=== PATIENT | male | born 1955 | race Caucasian/White ===

== ENCOUNTER 2016-07-01 20:57 | Inpatient (IN) | payer BC ==
[~2016-07-01] VITALS: Ht 182.9 cm; Wt 85.0 kg
[~2016-07-01 20:57] MED LIST: ALPR0.254; ASPI-535; ATOR80TA18; CARV25TA43 PO; CILOSTAZOL PO; CLOP75TA19; ENAL20TA77; ESCI10TA PO; HYDR50CA2 PO; LANS30CA47 PO; LORA-408; MELO-110; NCN500CCR; TAMS-14
[2016-07-01 21:05] VITALS: Ht 182.9 cm; Wt 85.0 kg
--- NOTE | 2016-07-01 21:17 | ERA ---
ER Documentation Chief Complaint Date/Time DATE: 07/01/16 TIME: 21:16 Chief Complaint chest burning HPI The patient is a 60-year-old male, presenting to the ER because of substernal chest burning intermittently for 1 day, worse today. He was treated with aspirin 160 mg p.o. and 3 nitroglycerin spray by the EMS with good response. He had similar symptoms previously. He denies any chest pain, dyspnea, pleuritic chest pain. His blood pressure has been elevated for the last 20 days. He saw his physician yesterday who started him on new medication losartan in addition to clonidine. He denies headache, dizziness, chest pain with exertion or vomiting or diaphoresis. He denies abdominal pain, vomiting, dysuria, diarrhea, constipation. He used to smoke until 6 years ago, drinks socially Past medical history: Hypertension, dyslipidemia, BPH, anxiety Past surgical history: Appendectomy ROS All systems reviewed and are negative except as per history of present illness. Medications Home Meds Reported Medications [Cillostazol] No Conflict Check, PO BID 10/30/10 Lansoprazole* (Prevacid*) 30 Mg Capsule., 30 MG PO AM 10/30/10 Hydroxyzine Pamoate* (Hydroxyzine Pamoate*) 50 Mg Capsule, 50 MG PO HS 10/30/10 Escitalopram Oxalate* (Lexapro*) 10 Mg Tablet, 10 MG PO AM 10/30/10 Carvedilol (Coreg) 25 Mg Tablet, 25 MG PO HS 10/30/10 Lorazepam (Ativan) 1 Mg Tablet 06/13/09 Niacin* (Niaspan*) 500 Mg Tablet.sa 06/13/09 Atorvastatin (Lipitor) 80 Mg Tablet 05/27/09 Meloxicam* (Mobic*) 15 Mg Tablet 05/27/09 Tamsulosin Hcl* (Flomax*) 0.4 Mg Cap.sr.24h 05/27/09 Enalapril (Enalapril) 20 Mg Tablet 05/27/09 Alprazolam* (Alprazolam*) 0.25 Mg Tablet 05/27/09 Clopidogrel Bisulfate (Plavix) 75 Mg Tablet 05/27/09 Aspirin Ec (Aspir 81) 81 Mg Tablet. 05/27/09 Allergies Allergies: Coded Allergies: No Known Allergies (Verified Allergy, Mild, 2/25/10) PMhx/Soc History of Surgery: Yes (appendectomy) Anesthesia Reaction: No Hx Neurological Disorder: No Hx Respiratory Disorders: No Hx Cardiac Disorders: Yes (htn,high cholesterol,) Hx Psychiatric Problems: No Hx Miscellaneous Medical Probl: No Hx Alcohol Use: Yes (occasional) Hx Substance Use: No Hx Tobacco Use: No Physical Exam Vitals Vital Signs Date Time Temp Pulse Resp B/P Pulse Ox O2 Delivery O2 Flow Rate FiO2 07/01/16 22:25 76 16 143/88 99 Nasal Cannula 2.0 07/01/16 21:37 Nasal Cannula 2 07/01/16 21:05 98.6 67 12 162/95 97 Physical Exam Const: No acute distress. Head: Atraumatic. Eyes: Normal Conjunctiva. ENT: Normal External Ears, Nose and Mouth. Neck: Full range of motion. No meningismus. Resp: Clear to auscultation bilaterally. Cardio: Regular rate and rhythm, no murmurs. Abd: Soft, non distended, normal bowel sounds, non tender. Skin: No petechiae or rashes. Back: No midline or flank tenderness. Ext: No cyanosis, or edema. Neur: Awake and alert. No focal deficit Psych: Normal Mood and Affect. Result Diagram: 07/01/16219907/01/162199 Results 24 hrs Laboratory Tests Test 07/01/16 22:00 Activated Partial Thromboplast Time 24.4Sec Anion Gap 16 Basophils # 0.010^3/ul Basophils % 0.3% Blood Urea Nitrogen 21mg/dl Calcium Level 8.9mg/dl Carbon Dioxide Level 26mmol/L Chloride Level 106mmol/L Creatinine 1.25mg/dl Eosinophils # 0.110^3/ul Eosinophils % 1.5% Glucose Level 95mg/dl Hematocrit 43.0% Hemoglobin 14.7g/dl INR International Normalized Ratio 0.91 Lymphocytes # 2.510^3/ul Lymphocytes % 42.1% Mean Corpuscular Hemoglobin 28.3pg Mean Corpuscular Hemoglobin Concent 34.2g/dl Mean Corpuscular Volume 82.9fl Mean Platelet Volume 11.5fl Monocytes # 0.310^3/ul Monocytes % 5.6% Neutrophils # 3.010^3/ul Neutrophils % 50.2% Nucleated Red Blood Cells # 0.010^3/ul Nucleated Red Blood Cells % 0.0/100WBC Platelet Count 69607^3/UL Potassium Level 4.0mmol/L Prothrombin Time 12.2Sec Prothrombin Time Ratio 1.0 Red Blood Count 5.1910^6/ul Red Cell Distribution Width 13.8% Sodium Level 144mmol/L Troponin I < 0.012ng/ml White Blood Count 6.010^3/ul Current Medications Medications (Trade) Dose Ordered Sig/Dayana Route PRN Reason Start Time Stop Time Status Last Admin Dose Admin Aspirin (Aspirin) 325 mg ONCE ONCE PO 07/01/16 22:30 07/01/16 22:31 DC Nitroglycerin (Nitroglycerin 2% Oint) 1 inch ONCE ONCE TD 07/01/16 22:30 07/01/16 22:31 DC 07/01/16 22:48 Aspirin (Aspirin) 81 mg STK-MED ONCE .ROUTE 07/01/16 22:52 07/01/16 22:53 DC Aspirin (Aspirin) 162 mg ONCE ONCE PO 07/01/16 23:00 07/01/16 23:05 DC 07/01/16 23:06 Aspirin (Halfprin) 81 mg QAM PO 07/02/16 09:00 UNV Atorvastatin Calcium (Lipitor) 40 mg QAM PO 07/02/16 09:00 UNV Clopidogrel Bisulfate (plaVIX) 75 mg QAM PO 07/02/16 09:00 UNV Enalapril Maleate (Vasotec) 20 mg QAM PO 07/02/16 09:00 UNV Escitalopram Oxalate (Lexapro) 10 mg AM PO 07/02/16 09:00 UNV Hydroxyzine Pamoate (Vistaril) 50 mg HS PO 07/02/16 21:00 UNV Lansoprazole (Prevacid) 30 mg AM PO 07/02/16 09:00 UNV Tamsulosin HCl (Flomax) 0.4 mg QHS PO 07/02/16 21:00 UNV Enoxaparin Sodium (Lovenox) 40 mg ONCE ONCE SC 07/01/16 23:30 07/01/16 23:31 DC Procedures/MDM EKG: Read by emergency physician at 9:02 pm Rate/Rhythm: Normal Sinus Rhythm 79 beats/min QRS, ST, T-waves: No ST elevation, no T inversion Impression: normal EKG [place] [address] Radiology Main Line: [phone] DIAGNOSTIC IMAGING REPORT Patient: VIKY BECK : 1955 Age: 60 Sex: M MR #: [id number] DOS: 07/01/162 Ordering MD: ABDIRASHID WING MD Location: E/R Room/Bed: PROCEDURE: XR Chest. CLINICAL INDICATION: Chest pain. TECHNIQUE: Single frontal view of the chest was obtained COMPARISON: 05/11/2013. FINDINGS: Decreased lung inflation over interval with cardiomegaly. Hypoinflated lungs accentuate pulmonary vascular markings. Mild bibasilar atelectasis, left greater than right. PA and lateral views of the chest with improved lung inflation would be more sensitive and specific. There is no pleural effusion or pneumothorax. IMPRESSION: Cardiomegaly and mild bibasilar atelectasis, left greater than right. RPTAT: [facility] Physician Keisha Date Time Electronically viewed and signed by Physician Keisha on 07/01/2016 22:23 RS/ CC: ABDIRASHID WING MD MEDICAL MAKING DECISION: The patient is a 60-year-old male with multiple cardiac risk factor, presenting with acute chest pain that is concerning for ACS. He was treated with aspirin 160 mg p.o. at the ER. The differential diagnoses considered include but are not limited to acute coronary syndrome, acute myocardial infarction, pericarditis, pulmonary embolism, aortic dissection , pneumonia, pleural effusion, pneumothorax, GERD, chest wall pain. Departure Diagnosis: Primary Impression: Chest pain Condition: Stable Comments I discussed the findings with the patient. I discussed the patient with his physician Dr. Richardson who was made aware of the lab, the treatment, the patient condition. The patient is admitted to telemetry at 11:10 PM ABDIRASHID WING MD Jul 01, 2016 21:17
[2016-07-01 21:44] LABS: ADD SCAN DIFF NO
[2016-07-01 21:46] LABS: BASOPHILS % 0.3 % (0.0-2.0); EOSINOPHILS # 0.1 10^3/ul (0.0-0.5); EOSINOPHILS % 1.5 % (0.0-7.0); HEMOGLOBIN 14.7 g/dl (14.0-18.0); LYMPHOCYTES # 2.5 10^3/ul (0.8-2.9); LYMPHOCYTES % 42.1 % (15.0-51.0); MEAN CORPUSCULAR HEMOGLOBIN 28.3 pg (29.0-33.0); MEAN CORPUSCULAR HGB CONC 34.2 g/dl (32.0-37.0); MEAN CORPUSCULAR VOLUME 82.9 fl (82.0-101.0); MEAN PLATELET VOLUME 11.5 fl (7.4-10.4); MONOCYTE # 0.3 10^3/ul (0.3-0.9); MONOCYTES % 5.6 % (0.0-11.0); NEUTROPHILS % 50.2 % (39.0-77.0); PLATELET COUNT 176 10^3/UL (140-415); RED BLOOD COUNT 5.19 10^6/ul (4.70-6.10); RED CELL DISTRIBUTION WIDTH 13.8 % (11.5-14.5)
[2016-07-01 21:56] LABS: INR 0.91; PROTIME 12.2 Sec (12.2-14.2)
[2016-07-01 21:57] LABS: PARTIAL THROMBOPLASTIN TIME 24.4 Sec (25.0-35.0)
--- NOTE | 2016-07-01 22:23 | RADRPT ---
PROCEDURE: XR Chest. CLINICAL INDICATION: Chest pain. TECHNIQUE: Single frontal view of the chest was obtained COMPARISON: 05/11/2013. FINDINGS: Decreased lung inflation over interval with cardiomegaly. Hypoinflated lungs accentuate pulmonary v ascular markings. Mild bibasilar atelectasis, left greater than right. PA and lateral views of the chest with improved lung inflation would be more sensitive and specific. There is no pleural effusion or pneumothorax. IMPRESSION: Cardiomegaly and mild bibasilar atelectasis, left greater than right. RPTAT: [facility] Physician Keisha Date Time Electronically viewed and signed by Physician Keisha on 07/01/2016 22:23 RS/
[2016-07-01 22:27] LABS: CHLORIDE 106 mmol/L (97-110); SODIUM 144 mmol/L (135-144)
[2016-07-01 22:29] LABS: CREATININE 1.25 mg/dl (0.61-1.24)
[2016-07-01 22:30] LABS: ANION GAP 16 (8-16); BLOOD UREA NITROGEN 21 mg/dl (7-20); CALCIUM 8.9 mg/dl (8.4-10.2); CARBON DIOXIDE 26 mmol/L (21-31); GLUCOSE 95 mg/dl (70-220)
[2016-07-01] MEDS ORDERED: ASPIRIN 325 MG TAB PO ONE (22:30)
[2016-07-01] MEDS ORDERED: NITROGLYCERIN 2% 1 GM OINT PKT TD ONE (22:30)
[2016-07-01 22:51] LABS: TROPONIN-I < 0.012 ng/ml (0.00-0.12)
[2016-07-01] MEDS ORDERED: ASPIRIN 81 MG TAB ONE (22:52)
[2016-07-01] MEDS ORDERED: ASPIRIN 81 MG TAB PO ONE (23:00)
[2016-07-01] MEDS ORDERED: ENOXAPARIN 40 MG/0.4 ML SYG SC ONE (23:30)
[2016-07-02] VITALS (15 sets, daily range): BP systolic 102–180; BP diastolic 57–94; PULSE 59–80; RESP 18–20
[2016-07-02] MEDS ORDERED: hydrALAzine 20 MG INJ IV PRN (01:30)
[2016-07-02] MEDS ORDERED: morphine 2 MG INJ IV PRN (01:30)
[2016-07-02 03:51] LABS: CREATINE KINASE 63 IU/L (23-200)
[2016-07-02 04:05] LABS: CK-MB 0.84 ng/ml (0.0-2.4); TROPONIN-I < 0.012 ng/ml (0.00-0.12)
[2016-07-02] MEDS: LANSOPRAZOLE 30 MG CAP PO SCH (05:08)
[2016-07-02] MEDS: ATORVASTATIN 80 MG TAB PO SCH (08:52)
[2016-07-02] MEDS: CLOPIDOGREL 75 MG TAB PO SCH (08:52)
[2016-07-02] MEDS: ESCITALOPRAM 10 MG TAB PO SCH (08:53)
[2016-07-02] MEDS: ASPIRIN (EC) 81 MG TAB PO SCH (08:54)
[2016-07-02] MEDS: ENALAPRIL 20 MG TAB PO SCH (08:55)
[2016-07-02 10:58] LABS: CREATINE KINASE 57 IU/L (23-200)
[2016-07-02 11:08] LABS: CK-MB 0.63 ng/ml (0.0-2.4)
[2016-07-02 11:11] LABS: TROPONIN-I < 0.012 ng/ml (0.00-0.12)
[2016-07-02] MEDS: ACETAMINOPHEN 325 MG TAB PO PRN ×2 (12:56→20:23)
[2016-07-02] MEDS ORDERED: ONDANSETRON 4 MG TAB PO PRN (13:30)
[2016-07-02 13:36] LABS: PHOSPHORUS 3.7 mg/dl (2.5-4.9)
[2016-07-02] MEDS: TAMSULOSIN (SR) 0.4 MG CAP PO SCH (20:23)
[2016-07-02] MEDS: DOCUSATE SODIUM 100 MG CAP PO SCH (20:23)
[2016-07-02] MEDS: hydrOXYzine PAMOATE 25 MG CAP PO SCH (21:41)
--- NOTE | 2016-07-02 22:53 | RADRPT ---
Echocardiogram Report Patient Name: VIKY BECK Gender: Male Date: 1955 Study Date: 02-Jul-2016 Ict Account Manager: Arvind Mao [facility] Location: 507 Ref. Physician: ALISON CODY Quality: Adequate Procedures: Transthoracic echocardiogram with complete 2D, M-Mode, and doppler examination. Indications: Chest Pain. 2D/M Mode Doppler Measurement Value Normal Ranges Measurement Value Normal Ranges LVIDd 2D 4.5 3.5 - 5.6 cm AV Peak Kael 1.1 m/sec LVIDs 2D 3.3 2.1 - 4.1 cm AV Peak PG 5.0 mmHg FS 2D 26.2 % LVOT Peak Kael 0.9 m/sec LVPWd 2D 1.0 0.6 - 1.1 cm LVOT Peak PG 3.0 mmHg IVSd 2D 0.9 0.6 - 1.1 cm MV E Peak Kael 0.6 m/sec IVS/LVPW 2D 0.9 MV A Peak Kael 0.8 m/sec AoR Diam 2D 3.1 2.0 - 3.7 cm MV E/A 0.8 LA/Ao 2D 1 0 - 1 MV Decel Time 261 msec EDV 2D 91.7 cm3 MV E/A 0.8 ESV 2D 36.9 cm3 TR Peak Kael 1.9 m/sec LA Dimen 2D 3.4 2.3 - 4.0 cm TR Peak PG 15.0 mmHg RVSP 18.0 mmHg Findings Left Ventricle: Lower limits of normal systolic function. Normal left ventricular cavity size. Normal left ventricular wall thickness. Ejection fraction is visually estimated at 50 %. Tissue Doppler/Mitral Doppler indices are consistent with impaired relaxation (Stage I diastolic dysfunction). These segments of the LV are hypokinetic inferior mid segment and inferior base segment. Right Ventricle: Normal right ventricular size. Normal right ventricular systolic function. Left Atrium: The left atrium is normal in size. Right Atrium: The right atrium is normal in size. Mitral Valve: Normal appearance of the mitral valve. Mild mitral annular calcification. Trace mitral regurgitation. Aortic Valve: Normal appearance of the aortic valve. No significant aortic stenosis or insufficiency. Tricuspid Valve: Normal appearance and function of the tricuspid valve with trace physiologic regurgitation. Normal right ventricular systolic pressure. Pulmonic Valve: Normal pulmonic valve appearance. Pericardium: Normal pericardium with no significant pericardial effusion. Aorta: Normal aortic root. IVC: Normal size and normal respiratory collapse consistent with normal right atrial pressure. Conclusions Lower limits of normal systolic function. Normal left ventricular cavity size. Normal left ventricular wall thickness. Ejection fraction is visually estimated at 50 %. Tissue Doppler/Mitral Doppler indices are consistent with impaired relaxation (Stage I diastolic dysfunction). These segments of the LV are hypokinetic inferior mid segment and inferior base segment. Normal appearance of the mitral valve. Mild mitral annular calcification. Trace mitral regurgitation. Normal appearance of the aortic valve. No significant aortic stenosis or insufficiency. Normal appearance and function of the tricuspid valve with trace physiologic regurgitation. Normal right ventricular systolic pressure. Electronically Signed By: Analy Minaya 02-Jul-2016 22:52:51 -0700 Patient Name: VIKY BECK Study Date: 02-Jul-2016 [id number]
--- NOTE | 2016-07-02 22:55 | CONS ---
Date/Time of Note Date/Time of Note DATE: 07/02/16 TIME: 22:49 Assessment/Plan Assessment/Plan Problems: (1) Chest pain Status: Acute Additional Assessment/Plan Pt with CP with multiple risk factors R/O ACS Trop 3 neg EKG non ischeic Echo with LVEF 50% Plan for [place] and if negative may d/c home f/u out pt with me. Consultation Date/Type/Reason Admit Date/Time Jul 01, 2016 at 23:10 Date of Consultation: Jul 02, 2016 Type of Consultation: Interventional Cardiology Reason for Consultation CP Hx of Present Illness Patient is 60 year old M with PMH of HTn, HLD who came in with mid sternal CP and SOB, no CP free, Her Echo with LVEF is 50% and Trop x 3 negative . Constitutional: no complaints Eyes: no complaints Past Medical History Medical History: angina Social History Smoking Status: Former smoker Exam/Review of Systems Vital Signs Vitals Vital Signs Date Time Temp Pulse Resp B/P Pulse Ox O2 Delivery O2 Flow Rate FiO2 07/02/16 20:08 60 07/02/16 19:47 98.0 18 136/83 97 07/02/16 01:03 Nasal Cannula 2.0 Exam Constitutional: alert, oriented Psych: no complaints Head: normocephalic Eyes: nl conjunctiva ENMT: nl external ears & nose Neck: supple Respiratory: clear to auscultation Neurological: GANG RIDER II-XII intact Results Result Diagram: 07/01/16219907/01/162199 Results 24 hrs Laboratory Tests Test 07/02/16 03:30 07/02/16 10:35 Creatine Kinase 63 57 Creatine Kinase Index 1.3 1.1 Creatinine Kinase MB (Mass) 0.84 0.63 Troponin I < 0.012 < 0.012 Cholesterol Level 210 H Cholesterol/HDL Ratio 5.0 HDL Cholesterol 42 LDL Cholesterol, Calculated 135 Phosphorus Level 3.7 Triglycerides Level 167 H Medications Medications Current Medications Aspirin (Halfprin) 81 mg QAM PO Last administered on 07/02/16 08:54; Admin Dose 81 MG; Start 07/02/16 at 09:00 Atorvastatin Calcium (Lipitor) 40 mg QAM PO Last administered on 07/02/16 08: 52; Admin Dose 40 MG; Start 07/02/16 at 09:00 Clopidogrel Bisulfate (plaVIX) 75 mg QAM PO Last administered on 07/02/16 08: 52; Admin Dose 75 MG; Start 07/02/16 at 09:00 Enalapril Maleate (Vasotec) 20 mg QAM PO Last administered on 07/02/16 08:55; Admin Dose 20 MG; Start 07/02/16 at 09:00 Escitalopram Oxalate (Lexapro) 10 mg AM PO Last administered on 07/02/16 08:53 ; Admin Dose 10 MG; Start 07/02/16 at 09:00 Hydroxyzine Pamoate (Vistaril) 50 mg HS PO Last administered on 07/02/16 21:41 ; Admin Dose 50 MG; Start 07/02/16 at 21:00 Lansoprazole (Prevacid) 30 mg DAILY@06 PO Last administered on 07/02/16 05:08 ; Admin Dose 30 MG; Start 07/02/16 at 06:00 Tamsulosin HCl (Flomax) 0.4 mg QHS PO Last administered on 07/02/16 20:23; Admin Dose 0.4 MG; Start 07/02/16 at 21:00 Carvedilol (Coreg) 25 mg BID PO Last administered on 07/02/16 20:23; Admin Dose 25 MG; Start 07/02/16 at 09:00 Hydralazine HCl (Apresoline) 10 mg Q4H PRN IV SBP>170 Last administered on 07/02 04:17; Admin Dose 10 MG; Start 07/02/16 at 01:30 Morphine Sulfate (morphine) 2 mg Q4H PRN IV pain; Start 07/02/16 at 01:30 Acetaminophen (Tylenol Tab) 650 mg Q4H PRN PO PAIN AND OR ELEVATED TEMP Last administered on 07/02/16 20:23; Admin Dose 650 MG; Start 07/02/16 at 01:30 Docusate Sodium (Colace) 100 mg BID PO Last administered on 07/02/16 20:23; Admin Dose 100 MG; Start 07/02/16 at 21:00 Ondansetron HCl (Zofran Tab) 4 mg Q6H PRN PO NAUSEA AND/OR VOMITING; Start at 13:30 JOSH BLACK MD Jul 02, 2016 22:54
[2016-07-03] VITALS (12 sets, daily range): BP systolic 106–153; BP diastolic 70–91; PULSE 48–76; RESP 18–20
[2016-07-03] MEDS: LANSOPRAZOLE 30 MG CAP PO SCH (05:35)
[2016-07-03 07:02] LABS: ADD SCAN DIFF NO
[2016-07-03 07:13] LABS: BASOPHILS % 0.3 % (0.0-2.0); EOSINOPHILS # 0.1 10^3/ul (0.0-0.5); EOSINOPHILS % 1.9 % (0.0-7.0); HEMOGLOBIN 15.6 g/dl (14.0-18.0); LYMPHOCYTES # 2.3 10^3/ul (0.8-2.9); LYMPHOCYTES % 38.8 % (15.0-51.0); MEAN CORPUSCULAR HEMOGLOBIN 27.9 pg (29.0-33.0); MEAN CORPUSCULAR HGB CONC 33.2 g/dl (32.0-37.0); MEAN CORPUSCULAR VOLUME 84.1 fl (82.0-101.0); MEAN PLATELET VOLUME 11.5 fl (7.4-10.4); MONOCYTE # 0.4 10^3/ul (0.3-0.9); MONOCYTES % 6.9 % (0.0-11.0); NEUTROPHILS % 51.6 % (39.0-77.0); PLATELET COUNT 197 10^3/UL (140-415); RED BLOOD COUNT 5.59 10^6/ul (4.70-6.10); RED CELL DISTRIBUTION WIDTH 14.3 % (11.5-14.5); WHITE BLOOD COUNT 5.9 10^3/ul (4.8-10.8)
[2016-07-03 07:15] LABS: POTASSIUM 4.3 mmol/L (3.5-5.1)
[2016-07-03 07:18] LABS: CALCIUM 8.8 mg/dl (8.4-10.2); CREATININE 1.01 mg/dl (0.61-1.24)
[2016-07-03 07:19] LABS: MAGNESIUM 2.2 mg/dl (1.7-2.5)
[2016-07-03] MEDS: ATORVASTATIN 80 MG TAB PO SCH (09:59)
[2016-07-03] MEDS: DOCUSATE SODIUM 100 MG CAP PO SCH ×2 (09:59→20:44)
[2016-07-03] MEDS: ASPIRIN (EC) 81 MG TAB PO SCH (10:00)
[2016-07-03] MEDS: ESCITALOPRAM 10 MG TAB PO SCH (10:00)
[2016-07-03] MEDS: CLOPIDOGREL 75 MG TAB PO SCH (10:00)
[2016-07-03] MEDS: ENALAPRIL 20 MG TAB PO SCH (10:01)
[2016-07-03] MEDS: ACETAMINOPHEN 325 MG TAB PO PRN (11:43)
[2016-07-03] MEDS ORDERED: REGADENOSON 0.4 MG/5 ML SYG ONE (13:39)
--- NOTE | 2016-07-03 14:40 | CARRPT ---
DATE OF PROCEDURE: 07/03/2016 INDICATION: Chest pain, assess for ischemia. BASELINE VITAL SIGNS AND ELECTROCARDIOGRAM: Pulse 58, blood pressure elevated at 175/95. Electroca rdiogram with normal sinus rhythm, rate of 63, normal axis, normal intervals with isolated T-wave fl attening in inferior leads. PROCEDURE: Patient with standard Lexiscan infusion protocol over 10 seconds followed by radiolabele d tracer. The patient's test was stopped due to completion of protocol. Maximal achieved blood pre ssure during the test 144/80. Maximal heart rate during the test 90. ELECTROCARDIOGRAM FINDINGS: The patient did not develop any new Lexiscan-induced ST or T-wave martines es from baseline abnormalities. No documented PVCs. SYMPTOMS: The patient had no complaints of chest pain or shortness of breath during stress testing. IMPRESSION: 1. No Lexiscan-induced ST or T-wave changes from baseline abnormalities or diagnostic cardiac ische emery. 2. No complaints of chest pain or shortness of breath during stress testing. 3. No documented premature ventricular contractions during stress testing. 4. Report of nuclear images to follow in separate dictation. Dictated By: NATY MELLO/MIKAYLA Conf#: [id number] DID#: [id number] CC: SARY BROOKE MD; JOSH BLACK MD;*[facility]*
--- NOTE | 2016-07-03 16:21 | RADRPT ---
PROCEDURE: Lexiscan myocardial perfusion study CLINICAL INDICATION: 60 -year-old patient complaining of chest pain. TECHNIQUE: Lexiscan 0.4 mg intravenously separate acquisition gated myocardial perfusion SPECT usi ng Tc 99m Myoview 30.6 mCi intravenously at stress and Tc-99m Myoview, 10.6 mCi intravenously at res t was performed using the rest/stress sequence. Poststress Myoview SPECT images were obtained in th e supine position. COMPARISON: Correlation with the previous study dated October 31, 2010 is not available at the time o f this interpretation.. FINDINGS: Perfusion images reveal no evidence of perfusion defects. Lexiscan post stress gated SPECT images demonstrate no wall motion abnormalities. IMPRESSION: 1. No evidence of perfusion defects. 2. No wall motion abnormalities. 3. The left ventricle ejection fraction at stress is 59%. RPTAT: HH .Tara Gamino MD, Date Time Electronically viewed and signed by .Tara Gamino MD, on 07/03/2016 16:20 .L/
--- NOTE | 2016-07-03 17:32 | HP ---
DATE OF ADMISSION: 07/01/2016 CHIEF COMPLAINT: Chest pain. HISTORY OF PRESENT ILLNESS: The patient is a 60-year-old gentleman with a history of hypertension, hyperlipidemia, anxiety, BPH, GERD, CHF, hyperlipidemia, and per patient, a left carotid artery 100% occlusion and cardiomegaly. The patient is a former smoker, and stated that he is compliant with m edication, managed by primary Dr. Barrera. The patient developed substernal chest burning for 1 d ay, that got significantly worse on Wednesday night. The patient was treated with aspirin and nitrog lycerin in the emergency room, with good response. Patient also complained that he has blood pressu re that sometimes the systolic goes up to 240. In the emergency room on admission the patient's blo od pressure was 162/95. The patient denied any nausea or vomiting. Denies fever, denies chills, de nies dysuria, denies bilateral lower extremity swelling, and the patient was admitted for further ev aluation and management. PAST MEDICAL HISTORY: Per HPI. PAST SURGICAL HISTORY: Status post appendectomy and tonsillectomy many years ago. The patient is s tatus post carotid angiography 5 years ago, with notion of left carotid artery occlusion, per ivett t. Details are not available. SOCIAL HISTORY: The patient is a former smoker. The patient stopped smoking about 5 to 6 years ago . The patient drinks alcohol occasionally. Patient denies any illicit drug use. The patient lives with family. FAMILY HISTORY: Noncontributory. ALLERGIES: NO KNOWN ALLERGIES. MEDICATIONS: 1. Avodart. 2. Flomax. 3. Enalapril. 4. Coreg. 5. Diltiazem. 6. Niacin. 7. Lipitor. 8. Aspirin. 9. Plavix. 10. Hydroxyzine. 11. Ibuprofen. 12. Lexapro. 13. Meloxicam. 14. Cilostazol. 15. Furosemide. 16. Lansoprazole. REVIEW OF SYSTEMS: A 12-point review of systems was negative unless mentioned in the HPI. PHYSICAL ASSESSMENT: GENERAL: Well-developed, well-nourished male who currently is awake, alert. VITAL SIGNS: Temperature is 98.2, pulse is 72, blood pressure 112/76, respiratory rate 18, heart ra te is 75, saturations 96% on room air. HEENT: Head is atraumatic, normocephalic. Pupils are equal, round, reactive to light and accommoda tion. Oral mucosa is pink and moist. NECK: Supple. No cervical lymphadenopathy, no thyromegaly. CHEST: Lungs clear bilaterally. There is no rhonchi, wheezes or rales noted. CARDIOVASCULAR: Normal S1, S2. No murmurs, gallops, clicks or rubs noted. ABDOMEN: Round, soft, nondistended, nontender. Bowel sounds present. There is no guarding or rebo und tenderness. EXTREMITIES: There is no edema, clubbing or cyanosis. Pulses are equal bilaterally at 2+. SKIN: There is no rash or petechiae noted. NEUROLOGIC: Patient is awake, alert and oriented. No focal deficits noted. Motor strength is 5/5 in all extremities. LABORATORY DATA: On admission CBC, white blood cells 6.0, hemoglobin 14.7, hematocrit 43.0, platele ts 176. Chemistry: Sodium is 144, potassium 4.0, chloride 106, carbon dioxide 26, anion gap 16, BU N is 21, creatinine 1.25. Troponin less than 0.012. ASSESSMENT AND PLAN: 1. Chest pain on admission. Rule out acute coronary syndrome. The patient underwent a Lexiscan. Pending results and cardiology recommendations. 2. Essential hypertension. Continue the patient on Coreg, hydralazine, Vasotec. Follow up cardiol ogy recommendations. 3. Benign prostatic hypertrophy. Continue Flomax. 4. Hyperlipidemia. Continue statin. 5. Carotid artery stenosis. Continue Plavix and aspirin. Will continue nitroglycerin and morphine p.r.n. for pain. 6. Admit the patient to telemetry. 7. Continue sequential compression device for deep venous thrombosis prophylaxis and Prevacid for p eptic ulcer disease prophylaxis. Further recommendations based on clinical course. Plan of care discussed with Dr. Richardson. Dictated By: ANNE ARDON MIGRATION SPECIALIST for SARY RICHARDSON MD SR/NTS Conf#: [id number] DID#: [id number]
--- NOTE | 2016-07-03 19:02 | RADRPT ---
PROCEDURE: US carotid arteries. CLINICAL INDICATION: Dizziness. Headache. TECHNIQUE: Multiple sonographic images of the carotid arteries and vertebral arteries were obtaine d utilizing art scale, duplex, and color-flow imaging. The images were reviewed on a PACS workstati on. COMPARISON: No prior studies are available for comparison. FINDINGS: Evaluation of the right carotid bifurcation region reveals mild atherosclerotic disease. Evaluation of the left carotid bifurcation region reveals mild atherosclerotic disease. There is antegrade flow within the vertebral arteries bilaterally. RIGHT CAROTID MEASUREMENTS: Common Carotid Awchlb32 (cm/sec) Internal Carotid Artery 104 (cm/sec) External Carotid Artery 115 (cm/sec) Vertebral Artery 31 (cm/sec) Internal Carotid/Common Carotid1.7 LEFT CAROTID MEASUREMENTS: Common Carotid Raptqg38 (cm/sec) Internal Carotid Artery 65 (cm/sec) External Carotid Artery 95 (cm/sec) Vertebral Artery 37 (cm/sec) Internal Carotid/Common Carotid1.2 Validated velocity measurements with angiographic measurements. Velocity criteria are extrapolated f rom diameter data as defined by the Society of Radiologists in Ultrasound Consensus Conference. Radi ology 2003; 229;340-346. This study does indirectly reference the measurement of the distal ICA ash meter as the denominator for stenosis measurement. IMPRESSION: 1. Less than 50% stenosis bilaterally in the internal carotid arteries. 2. Normal antegrade flow in the vertebral arteries bilaterally. RPTAT: QQ SRU Consensus Conference Criteria for the Diagnosis of Carotid Artery Stenosis* Degree of Stenosis, % ICA PSV, cm/sec Plaque Estimate, % ICA/CCA PSV Ratio Normal <125 None <2.0 <50 <125 <50 <2.0 50 69 125-230 >50 2.0-4.0 >70 but less than near occlusion >230 >50 <4.0 Near occlusion High, low, or undetectable Visible Variable Total occlusion Undetectable Visible, no detectable lumen Not applicable *Cartoid artery stenosis: art-scale and Doppler US diagnosis. Society of Radiologists in Ultrasound Consensus Conference. Radiology 2003; 229: 340-346 .Prasad Azevedo MD, Date Time Electronically viewed and signed by .Prasad Azevedo MD, on 07/03/2016 19:02 .R/
[2016-07-03] MEDS: TAMSULOSIN (SR) 0.4 MG CAP PO SCH (20:43)
[2016-07-03] MEDS: hydrOXYzine PAMOATE 25 MG CAP PO SCH (20:44)
--- NOTE | 2016-07-03 21:07 | CONS ---
Date/Time of Note Date/Time of Note DATE: 07/03/16 TIME: 21:06 Consult Date/Type/Reason Admit Date/Time Jul 01, 2016 at 23:10 Initial Consult Date 07/02/16 Type of Consultation: Interventional Cardiology Objective Vital Signs Date Time Temp Pulse Resp B/P Pulse Ox O2 Delivery O2 Flow Rate FiO2 07/03/16 20:03 98.6 66 20 152/76 97 07/02/16 01:03 Nasal Cannula 2.0 Intake and Output 07/02/16 07/02/16 07/03/16 15:00 23:00 07:00 Intake Total 1200 ml 600 ml Output Total 1000 ml Balance 200 ml 600 ml Results/Medications Result Diagram: 07/03/16 0610 07/03/16 0610 Results 24 hrs Laboratory Tests Test 07/03/16 06:10 Anion Gap 16 Basophils # 0.0 Basophils % 0.3 Blood Urea Nitrogen 17 Calcium Level 8.8 Carbon Dioxide Level 29 Chloride Level 101 Creatinine 1.01 Eosinophils # 0.1 Eosinophils % 1.9 Glucose Level 100 Hematocrit 47.0 Hemoglobin 15.6 Lymphocytes # 2.3 Lymphocytes % 38.8 Magnesium Level 2.2 Mean Corpuscular Hemoglobin 27.9 L Mean Corpuscular Hemoglobin Concent 33.2 Mean Corpuscular Volume 84.1 Mean Platelet Volume 11.5 H Monocytes # 0.4 Monocytes % 6.9 Neutrophils # 3.0 Neutrophils % 51.6 Nucleated Red Blood Cells # 0.0 Nucleated Red Blood Cells % 0.0 Platelet Count 197 Potassium Level 4.3 Red Blood Count 5.59 Red Cell Distribution Width 14.3 Sodium Level 142 White Blood Count 5.9 Medications Current Medications Aspirin (Halfprin) 81 mg QAM PO Last administered on 07/03/16 10:00; Admin Dose 81 MG; Start 07/02/16 at 09:00 Atorvastatin Calcium (Lipitor) 40 mg QAM PO Last administered on 07/03/16 09: 59; Admin Dose 40 MG; Start 07/02/16 at 09:00 Clopidogrel Bisulfate (plaVIX) 75 mg QAM PO Last administered on 07/03/16 10: 00; Admin Dose 75 MG; Start 07/02/16 at 09:00 Enalapril Maleate (Vasotec) 20 mg QAM PO Last administered on 07/03/16 10:01; Admin Dose 20 MG; Start 07/02/16 at 09:00 Escitalopram Oxalate (Lexapro) 10 mg AM PO Last administered on 07/03/16 10:00 ; Admin Dose 10 MG; Start 07/02/16 at 09:00 Hydroxyzine Pamoate (Vistaril) 50 mg HS PO Last administered on 07/03/16 20:44 ; Admin Dose 50 MG; Start 07/02/16 at 21:00 Lansoprazole (Prevacid) 30 mg DAILY@06 PO Last administered on 07/03/16 05:35 ; Admin Dose 30 MG; Start 07/02/16 at 06:00 Tamsulosin HCl (Flomax) 0.4 mg QHS PO Last administered on 07/03/16 20:43; Admin Dose 0.4 MG; Start 07/02/16 at 21:00 Carvedilol (Coreg) 25 mg BID PO Last administered on 07/03/16 20:44; Admin Dose 25 MG; Start 07/02/16 at 09:00 Hydralazine HCl (Apresoline) 10 mg Q4H PRN IV SBP>170 Last administered on 07/02 04:17; Admin Dose 10 MG; Start 07/02/16 at 01:30 Morphine Sulfate (morphine) 2 mg Q4H PRN IV pain; Start 07/02/16 at 01:30 Acetaminophen (Tylenol Tab) 650 mg Q4H PRN PO PAIN AND OR ELEVATED TEMP Last administered on 07/03/16 11:43; Admin Dose 650 MG; Start 07/02/16 at 01:30 Docusate Sodium (Colace) 100 mg BID PO Last administered on 07/03/16 20:44; Admin Dose 100 MG; Start 07/02/16 at 21:00 Ondansetron HCl (Zofran Tab) 4 mg Q6H PRN PO NAUSEA AND/OR VOMITING; Start at 13:30 Assessment/Plan Chief Complaint/Hosp Course Patient is 60 year old M with PMH of HTn, HLD who came in with mid sternal CP and SOB, no CP free, Her Echo with LVEF is 50% and Trop x 3 negative . Problems: Additional Assessment/Plan Patients Pastora is negative pt is doing fine stable carotid neg with mild Plaque. will .JOSH Pichardo MD Jul 03, 2016 21:07
--- NOTE | 2016-07-03 23:08 | HP ---
Date/Time of Note Date/Time of Note DATE: 07/02/16 TIME: 21:55 Assessment/Plan VTE Prophylaxis VTE Prophylaxis Intervention: LMWH Lines/Catheters IV Catheter Type (from Nrs): Saline Lock Urinary Cath still in place: No Assessment/Plan Assessment/Plan - Acute Chest pain- none at present, r/o Acute Coronary Syndrome - tele monitoring - aspirin - Morphine sulphate - pain management - Oxygen by PA - Zofran for nausea/ vomitting - colace stool softener - resume home meds - cardiology consult- Dr Minaya notified - 2-D echo ordered - Low cholesterol. ow Na diet - Am labs - History of Hypertension - Vasotec - Acute Kidney Injury - cont to monitor, fu am labs, nephrology consult if no improvement - Dyslipidemia - Atorvastatin - Cardiac diet - LDH panel am - Historry of BPH - Flomax -Former smoker - Smoking cessation reinforced- patient agreed. - Lexapro for depressed mood- patient denies any depression at present. - Lovenox, ASA for DVT prophylaxis - Prevacid for GI prophylaxis Further recommendations depend upon patient clinical coursed. Plan of care Dw Dr Richardson/staff/ HPI/ROS Admit Date/Time Admit Date/Time Jul 01, 2016 at 23:10 Hx of Present Illness chest burning HPI The patient is a 60-year-old male with history of Hypertension, dyslipidemia, BPH, anxiety, Appendectomy was seen in the ER because of substernal chest burning intermittently from 1 day but got worse today . Per ER chart, patient was treated with aspirin 160 mg p.o. and 3 nitroglycerin spray by the EMS with good response. Patient was seen by his physician for his elevated blood pressure and was started on new medication losartan in addition to clonidine.He denies any chest pain, dyspnea, pleuritic chest pain, chest pain with exertion ,dizziness, palpitations, headaches, focal weakness and numbness,abdominal pain , nausea/vomitting, dysuria, diarrhea, constipation. He used to smoke until 6 years ago, drinks socially. ER COURSE: Patient was treated with aspirin 160 mg p.o. at the ER. Patient has multiple cardiac risk factors and has c/o acute chest pain that is concerning for ACS. Patient got admitted under Dr Richardson for further evaluation and treatment for differential diagnoses considered include but are not limited to acute coronary syndrome, acute myocardial infarction, pericarditis, pulmonary embolism, aortic dissection, pneumonia, pleural effusion , pneumothorax, GERD, chest wall pain. Patient at bed side- all qs answered. ROS All systems reviewed and are negative except as per history of present illness. Medications Home Meds Reported Medications [Cillostazol] No Conflict Check, PO BID 10/30/10 Lansoprazole* (Prevacid*) 30 Mg Capsule.dr, 30 MG PO AM 10/30/10 Hydroxyzine Pamoate* (Hydroxyzine Pamoate*) 50 Mg Capsule, 50 MG PO HS 10/30/10 Escitalopram Oxalate* (Lexapro*) 10 Mg Tablet, 10 MG PO AM 10/30/10 Carvedilol (Coreg) 25 Mg Tablet, 25 MG PO HS 10/30/10 Lorazepam (Ativan) 1 Mg Tablet 06/13/09 Niacin* (Niaspan*) 500 Mg Tablet.sa 06/13/09 Atorvastatin (Lipitor) 80 Mg Tablet 05/27/09 Meloxicam* (Mobic*) 15 Mg Tablet 05/27/09 Tamsulosin Hcl* (Flomax*) 0.4 Mg Cap.sr.24h 05/27/09 Enalapril (Enalapril) 20 Mg Tablet 05/27/09 Alprazolam* (Alprazolam*) 0.25 Mg Tablet 05/27/09 Clopidogrel Bisulfate (Plavix) 75 Mg Tablet 05/27/09 Aspirin Ec (Aspir 81) 81 Mg Tablet. 05/27/09 Allergies Allergies: Coded Allergies: No Known Allergies (Verified Allergy, Mild, 06/13/09) PMhx/Soc History of Surgery: Yes (appendectomy) Anesthesia Reaction: No Hx Neurological Disorder: No Hx Respiratory Disorders: No Hx Cardiac Disorders: Yes (htn,high cholesterol,) Hx Psychiatric Problems: No Hx Miscellaneous Medical Probl: No Hx Alcohol Use: Yes (occasional) Hx Substance Use: No Hx Tobacco Use: No ROS Subjective hx not possible: other (feels tired.) Constitutional: improved Eyes: no complaints ENT: no complaints Respiratory: no complaints Cardiovascular: no complaints Gastrointestinal: no complaints Genitourinary: no complaints Musculoskeletal: no complaints Skin: no complaints Neurologic: no complaints Endocrine: no complaints Lymphatic: no complaints Psychological: no complaints Immunologic: no complaints PMH/Family/Social Past Medical History PMhx/Soc History of Surgery: Yes (appendectomy) Anesthesia Reaction: No Hx Neurological Disorder: No Hx Respiratory Disorders: No Hx Cardiac Disorders: Yes (htn,high cholesterol,) Hx Psychiatric Problems: No Hx Miscellaneous Medical Probl: No Hx Alcohol Use: Yes (occasional) Hx Substance Use: No Hx Tobacco Use: No Social History Alcohol Use: occasionally Smoking Status: Former smoker Drug Use: none Exam/Review of Systems Vital Signs Vitals Vital Signs Date Time Temp Pulse Resp B/P Pulse Ox O2 Delivery O2 Flow Rate FiO2 07/02/16 20:08 60 07/02/16 19:47 98.0 18 136/83 97 07/02/16 01:03 Nasal Cannula 2.0 Exam Constitutional: alert, oriented, well developed Psych: nl mood/affect Head: atraumatic Eyes: EOMI ENMT: nl external ears & nose Neck: non-tender Respiratory: clear to auscultation Cardiovascular: nl pulses Gastrointestinal: non-tender, soft Musculoskeletal: nl extremities to inspection Extremities: normal pulses Neurological: nl mental status, nl speech Skin: nl turgor Lymph: nontender Labs Result Diagram: 07/01/16219907/01/162199 Medications Medications Current Medications Aspirin (Halfprin) 81 mg QAM PO Last administered on 07/02/16 08:54; Admin Dose 81 MG; Start 07/02/16 at 09:00 Atorvastatin Calcium (Lipitor) 40 mg QAM PO Last administered on 07/02/16 08: 52; Admin Dose 40 MG; Start 07/02/16 at 09:00 Clopidogrel Bisulfate (plaVIX) 75 mg QAM PO Last administered on 07/02/16 08: 52; Admin Dose 75 MG; Start 07/02/16 at 09:00 Enalapril Maleate (Vasotec) 20 mg QAM PO Last administered on 07/02/16 08:55; Admin Dose 20 MG; Start 07/02/16 at 09:00 Escitalopram Oxalate (Lexapro) 10 mg AM PO Last administered on 07/02/16 08:53 ; Admin Dose 10 MG; Start 07/02/16 at 09:00 Hydroxyzine Pamoate (Vistaril) 50 mg HS PO Last administered on 07/02/16 21:41 ; Admin Dose 50 MG; Start 07/02/16 at 21:00 Lansoprazole (Prevacid) 30 mg DAILY@06 PO Last administered on 07/02/16 05:08 ; Admin Dose 30 MG; Start 07/02/16 at 06:00 Tamsulosin HCl (Flomax) 0.4 mg QHS PO Last administered on 07/02/16 20:23; Admin Dose 0.4 MG; Start 07/02/16 at 21:00 Carvedilol (Coreg) 25 mg BID PO Last administered on 07/02/16 20:23; Admin Dose 25 MG; Start 07/02/16 at 09:00 Hydralazine HCl (Apresoline) 10 mg Q4H PRN IV SBP>170 Last administered on 07/02 04:17; Admin Dose 10 MG; Start 07/02/16 at 01:30 Morphine Sulfate (morphine) 2 mg Q4H PRN IV pain; Start 07/02/16 at 01:30 Acetaminophen (Tylenol Tab) 650 mg Q4H PRN PO PAIN AND OR ELEVATED TEMP Last administered on 07/02/16 20:23; Admin Dose 650 MG; Start 07/02/16 at 01:30 Docusate Sodium (Colace) 100 mg BID PO Last administered on 07/02/16 20:23; Admin Dose 100 MG; Start 07/02/16 at 21:00 Ondansetron HCl (Zofran Tab) 4 mg Q6H PRN PO NAUSEA AND/OR VOMITING; Start at 13:30 Procedures Procedures 1, EKG: Read by emergency physician at 9:02 pm Rate/Rhythm: Normal Sinus Rhythm 79 beats/min QRS, ST, T-waves: No ST elevation, no T inversion Impression: normal EKG 2, PROCEDURE: XR Chest. CLINICAL INDICATION: Chest pain. TECHNIQUE: Single frontal view of the chest was obtained COMPARISON: 05/11/2013. FINDINGS: Decreased lung inflation over interval with cardiomegaly. Hypoinflated lungs accentuate pulmonary vascular markings. Mild bibasilar atelectasis, left greater than right. PA and lateral views of the chest with improved lung inflation would be more sensitive and specific. There is no pleural effusion or pneumothorax. IMPRESSION: Cardiomegaly and mild bibasilar atelectasis, left greater than right. ALISON CODY Jul 02, 2016 22:08
[2016-07-04] VITALS (10 sets, daily range): BP systolic 109–147; BP diastolic 73–86; PULSE 52–69; RESP 17–20
[2016-07-04] MEDS: LANSOPRAZOLE 30 MG CAP PO SCH (06:10)
[2016-07-04 06:27] LABS: ADD SCAN DIFF NO
[2016-07-04 06:47] LABS: BASOPHILS % 0.3 % (0.0-2.0); EOSINOPHILS # 0.1 10^3/ul (0.0-0.5); EOSINOPHILS % 1.8 % (0.0-7.0); HEMATOCRIT 47.5 % (42.0-52.0); HEMOGLOBIN 15.7 g/dl (14.0-18.0); LYMPHOCYTES # 2.6 10^3/ul (0.8-2.9); LYMPHOCYTES % 35.5 % (15.0-51.0); MEAN CORPUSCULAR HEMOGLOBIN 27.8 pg (29.0-33.0); MEAN CORPUSCULAR HGB CONC 33.1 g/dl (32.0-37.0); MEAN CORPUSCULAR VOLUME 84.2 fl (82.0-101.0); MEAN PLATELET VOLUME 11.6 fl (7.4-10.4); MONOCYTE # 0.5 10^3/ul (0.3-0.9); MONOCYTES % 6.8 % (0.0-11.0); NEUTROPHIL # 4.1 10^3/ul (1.6-7.5); NEUTROPHILS % 55.2 % (39.0-77.0); PLATELET COUNT 199 10^3/UL (140-415); RED BLOOD COUNT 5.64 10^6/ul (4.70-6.10); RED CELL DISTRIBUTION WIDTH 14.2 % (11.5-14.5); WHITE BLOOD COUNT 7.4 10^3/ul (4.8-10.8)
[2016-07-04 07:11] LABS: POTASSIUM 4.9 mmol/L (3.5-5.1)
[2016-07-04 07:14] LABS: CREATININE 1.13 mg/dl (0.61-1.24)
[2016-07-04] MEDS: ASPIRIN (EC) 81 MG TAB PO SCH (08:49)
[2016-07-04] MEDS: ESCITALOPRAM 10 MG TAB PO SCH (08:49)
[2016-07-04] MEDS: DOCUSATE SODIUM 100 MG CAP PO SCH (08:49)
[2016-07-04] MEDS: CLOPIDOGREL 75 MG TAB PO SCH (08:50)
[2016-07-04] MEDS: ATORVASTATIN 80 MG TAB PO SCH (08:50)
[2016-07-04] MEDS: ENALAPRIL 20 MG TAB PO SCH (08:53)
[2016-07-04] MEDS: ACETAMINOPHEN 325 MG TAB PO PRN (09:06)
--- NOTE | 2016-07-04 11:59 | DS ---
Date/Time of Note Date/Time of Note DATE: 07/04/16 TIME: 11:57 Discharge Summary Admission/Discharge Info Admit Date/Time Jul 01, 2016 at 23:10 Discharge Date/Time 07/04/16 Final Diagnosis 1) chest pain 2) headache Patient Condition: Fair Hx of Present Illness chest burning HPI The patient is a 60-year-old male with history of Hypertension, dyslipidemia, BPH, anxiety, Appendectomy was seen in the ER because of substernal chest burning intermittently from 1 day but got worse today . Per ER chart, patient was treated with aspirin 160 mg p.o. and 3 nitroglycerin spray by the EMS with good response. Patient was seen by his physician for his elevated blood pressure and was started on new medication losartan in addition to clonidine.He denies any chest pain, dyspnea, pleuritic chest pain, chest pain with exertion ,dizziness, palpitations, headaches, focal weakness and numbness,abdominal pain , nausea/vomitting, dysuria, diarrhea, constipation. He used to smoke until 6 years ago, drinks socially. ER COURSE: Patient was treated with aspirin 160 mg p.o. at the ER. Patient has multiple cardiac risk factors and has c/o acute chest pain that is concerning for ACS. Patient got admitted under Dr Richardson for further evaluation and treatment for differential diagnoses considered include but are not limited to acute coronary syndrome, acute myocardial infarction, pericarditis, pulmonary embolism, aortic dissection, pneumonia, pleural effusion , pneumothorax, GERD, chest wall pain. Patient at bed side- all qs answered. ROS All systems reviewed and are negative except as per history of present illness. Medications Home Meds Reported Medications [Cillostazol] No Conflict Check, PO BID 10/30/10 Lansoprazole* (Prevacid*) 30 Mg Capsule., 30 MG PO AM 10/30/10 Hydroxyzine Pamoate* (Hydroxyzine Pamoate*) 50 Mg Capsule, 50 MG PO HS 10/30/10 Escitalopram Oxalate* (Lexapro*) 10 Mg Tablet, 10 MG PO AM 10/30/10 Carvedilol (Coreg) 25 Mg Tablet, 25 MG PO HS 10/30/10 Lorazepam (Ativan) 1 Mg Tablet 06/13/09 Niacin* (Niaspan*) 500 Mg Tablet.sa 06/13/09 Atorvastatin (Lipitor) 80 Mg Tablet 05/27/09 Meloxicam* (Mobic*) 15 Mg Tablet 05/27/09 Tamsulosin Hcl* (Flomax*) 0.4 Mg Cap.sr.24h 05/27/09 Enalapril (Enalapril) 20 Mg Tablet 05/27/09 Alprazolam* (Alprazolam*) 0.25 Mg Tablet 05/27/09 Clopidogrel Bisulfate (Plavix) 75 Mg Tablet 05/27/09 Aspirin Ec (Aspir 81) 81 Mg Tablet. 05/27/09 Allergies Allergies: Coded Allergies: No Known Allergies (Verified Allergy, Mild, 06/13/09) PMhx/Soc History of Surgery: Yes (appendectomy) Anesthesia Reaction: No Hx Neurological Disorder: No Hx Respiratory Disorders: No Hx Cardiac Disorders: Yes (htn,high cholesterol,) Hx Psychiatric Problems: No Hx Miscellaneous Medical Probl: No Hx Alcohol Use: Yes (occasional) Hx Substance Use: No Hx Tobacco Use: No Hospital Course Patient is 60 year old M with PMH of HTn, HLD who came in with mid sternal CP and SOB, no CP free, Her Echo with LVEF is 50% and Trop x 3 negative. Patient states he no longer has chest pain. Patient was felt to be stable and was sent home. . Home Meds Reported Medications [Cillostazol] No Conflict Check, PO BID 10/30/10 Lansoprazole* (Prevacid*) 30 Mg Capsule.dr, 30 MG PO AM 10/30/10 Hydroxyzine Pamoate* (Hydroxyzine Pamoate*) 50 Mg Capsule, 50 MG PO HS 10/30/10 Escitalopram Oxalate* (Lexapro*) 10 Mg Tablet, 10 MG PO AM 10/30/10 Carvedilol (Coreg) 25 Mg Tablet, 25 MG PO HS 10/30/10 Lorazepam (Ativan) 1 Mg Tablet 06/13/09 Niacin* (Niaspan*) 500 Mg Tablet.sa 06/13/09 Atorvastatin (Lipitor) 80 Mg Tablet 05/27/09 Meloxicam* (Mobic*) 15 Mg Tablet 05/27/09 Tamsulosin Hcl* (Flomax*) 0.4 Mg Cap.sr.24h 05/27/09 Enalapril (Enalapril) 20 Mg Tablet 05/27/09 Alprazolam* (Alprazolam*) 0.25 Mg Tablet 05/27/09 Clopidogrel Bisulfate (Plavix) 75 Mg Tablet 05/27/09 Aspirin Ec (Aspir 81) 81 Mg Tablet. 05/27/09 Pending Labs Laboratory Tests Test 07/04/16 05:39 Anion Gap 16 (8-16) Basophils # 0.010^3/ul (0.0-0.1) Basophils % 0.3% (0.0-2.0) Blood Urea Nitrogen 22mg/dl (7-20) Calcium Level 9.0mg/dl (8.4-10.2) Carbon Dioxide Level 29mmol/L (21-31) Chloride Level 103mmol/L (97-110) Creatinine 1.13mg/dl (0.61-1.24) Eosinophils # 0.110^3/ul (0.0-0.5) Eosinophils % 1.8% (0.0-7.0) Glucose Level 96mg/dl (70-220) Hematocrit 47.5% (42.0-52.0) Hemoglobin 15.7g/dl (14.0-18.0) Lymphocytes # 2.610^3/ul (0.8-2.9) Lymphocytes % 35.5% (15.0-51.0) Mean Corpuscular Hemoglobin 27.8pg (29.0-33.0) Mean Corpuscular Hemoglobin Concent 33.1g/dl (32.0-37.0) Mean Corpuscular Volume 84.2fl (82.0-101.0) Mean Platelet Volume 11.6fl (7.4-10.4) Monocytes # 0.510^3/ul (0.3-0.9) Monocytes % 6.8% (0.0-11.0) Neutrophils # 4.110^3/ul (1.6-7.5) Neutrophils % 55.2% (39.0-77.0) Nucleated Red Blood Cells # 0.010^3/ul (0.0-0.0) Nucleated Red Blood Cells % 0.0/100WBC (0.0-0.0) Platelet Count 93331^3/UL (140-415) Potassium Level 4.9mmol/L (3.5-5.1) Red Blood Count 5.6410^6/ul (4.70-6.10) Red Cell Distribution Width 14.2% (11.5-14.5) Sodium Level 143mmol/L (135-144) White Blood Count 7.410^3/ul (4.8-10.8) MORTEZA THURMAN Jul 04, 2016 11:59
--- NOTE | 2016-07-04 15:39 | RADRPT ---
PROCEDURE: CT Brain without contrast. CLINICAL INDICATION: Headache. Chest pain. TECHNIQUE: A CT of the brain without contrast was performed utilizing axial sections from the skul l base through the vertex. The patient was scanned without intravenous contrast enhancement. Sag[place] l and coronal reformatted images were obtained using the data from the axial images. Total exam DLP is 720.23 mGy-cm. CTDIvol is 44.26 mGy. One or more of the following dose reduction techniques we re used: Automated exposure control, adjustment of the mA and/or kV according to patient size, use o f iterative reconstruction technique. COMPARISON: None available FINDINGS: There is normal art-white matter differentiation. The ventricles and cisterns are normal. There is no intracranial hemorrhage or space-occupying lesion. There is no skull fracture or lytic lesion. IMPRESSION: 1. Normal noncontrast CT scan of the brain. 2. No intracranial hemorrhage. RPTAT: QQ .Prasad Azevedo MD, MD Date Time Electronically viewed and signed by .Prasad Azevedo MD, on 07/04/2016 15:39 .R/
== END 2016-07-04 16:36 | disposition home or self-care (01) | DRG 313 ==
LOC: E/R 20:57 → TEL 23:10
PROVIDERS: ADMIT Internal Medicine; ATTEND Internal Medicine
DX: R07.9 Chest pain, unspecified (principal); I65.23 Occlusion and stenosis of bilateral carotid arteries; I10 Essential (primary) hypertension; E78.5 Hyperlipidemia, unspecified; R51 Headache; N40.0 Benign prostatic hyperplasia without lower urinary tract symptoms; F41.9 Anxiety disorder, unspecified; K21.9 Gastro-esophageal reflux disease without esophagitis; Z79.82 Long term (current) use of aspirin; Z79.02 Long term (current) use of antithrombotics/antiplatelets; Z87.891 Personal history of nicotine dependence
CPT/HCPCS: 36415; 70450; 71010; 78452; 80048; 80061; 82550; 82553; 83735; 84100; 84484; 85025; 85610; 85730; 93005; 93017; 93306; 93880; A9500; A9505; J0360; J1650; J2785